=== PATIENT | female | born 1985 | race Caucasian/White ===

== ENCOUNTER → 2023-11-08 | Outpatient (CLI) | payer OTHER, BC ==
[~2023-11-08] MED LIST: AMOXICILLIN AND1 TA2 PO; BENZONATATE200 MG PO; IPRATROPIUM BROM3 M1 IH; NEB INH; SEPTRA DS 8001 TAB PO
== END ==
LOC: LAB 15:52
DX: R05.1 Acute cough (principal); R06.02 Shortness of breath